=== PATIENT | male | born 1975 | race Caucasian/White ===

== ENCOUNTER 2016-12-16 14:22 | Emergency (ER) | payer MEDICARE ==
[~2016-12-16] VITALS: Ht 182.9 cm; Wt 91.3 kg
[2016-12-16 14:32] VITALS: BP 120/85; PULSE 67; RESP 16; TEMP 98.8; O2SAT 100
[2016-12-16] MEDS ORDERED: METH5INJ INJ (15:14)
[2016-12-16] MEDS ORDERED: FOLI400T PO (15:14)
[2016-12-16] MEDS ORDERED: PRED2.5T PO (15:14)
[2016-12-16] MEDS ORDERED: TETANUS/DIPHTHERIA TOXOID ADULT 0.5 ML VIAL IM ONE (15:15)
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
[2016-12-16] MEDS ORDERED: CEPH-460 PO (16:19)
[2016-12-16] MEDS ORDERED: TRAM50TA PO (16:20)
== END 2016-12-16 16:54 | disposition home or self-care (01) ==
LOC: PHEFT 14:22
DX: S91.312A Laceration without foreign body, left foot, initial encounter (principal); X99.0XXA Assault by sharp glass, initial encounter; Z23 Encounter for immunization; Z72.0 Tobacco use
CPT/HCPCS: 12001; 73630; 90471; 90714

== ENCOUNTER 2018-01-20 08:59 | Emergency (ER) | payer MEDICARE, OTHER ==
[~2018-01-20] VITALS: Ht 182.9 cm; Wt 96.0 kg
[~2018-01-20 08:59] MED LIST: CEPH-460 PO; FOLI400T PO; METH5INJ INJ; PRED2.5T PO; TRAM50TA PO
[2018-01-20 09:08] VITALS: BP 124/67; PULSE 84; RESP 16; TEMP 100.3; O2SAT 95
--- NOTE | 2018-01-20 09:58 | RADRPT ---
EXAM DATE/TIME: 01/20/2018 09:23 [facility] COMPARISON: No previous studies available for comparison. INDICATIONS : Right wrist pain, injured yesterday working on an engine. MEDICAL HISTORY : None. SURGICAL HISTORY : None. ENCOUNTER: Initial ACUITY: 2 days PAIN SCORE: 8/10 LOCATION: Right wrist FINDINGS: Three view examination of the right wrist demonstrates no soft tissue swelling, dislocation, or fract ure. The carpal bones are in normal alignment. The joint spaces are maintained. Bony mineralizatio n is normal. CONCLUSION: Negative trauma study. Barrington Garcia MD on January 20, 2018 at 9:56 Board Certified Radiologist. This report was verified electronically.
[2018-01-20] MEDS ORDERED: ENBR50IN4 SQ (10:34)
[2018-01-20 10:59] VITALS: BP 108/57; PULSE 85; RESP 18; TEMP 99.5; O2SAT 97
[2018-01-20] MEDS ORDERED: IBUPROFEN 600 MG TAB PO ONE (11:15)
[2018-01-20] MEDS ORDERED: BACT800T5 PO (11:16)
--- NOTE | 2018-01-20 11:18 | PD ---
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 Persistent pain leading to today's evaluation reported. No fever. Pain is worse with range of motion and pressure. PFSH Past Medical History Arthritis: Yes (psoriatic) Past Surgical History Joint Replacement: Yes (total left knee ) Social History Alcohol Use: Yes (rare) Tobacco Use: No Substance Use: No Allergies-Medications (Allergen,Severity, Reaction): Coded Allergies: No Known Allergies (Unverified Adverse Reaction, Unknown, 01/20/18) Reported Meds & Prescriptions Reported Meds & Active Scripts Active Bactrim DS (Sulfamethoxazole-Trimethoprim) 800-160 Mg Tab 1 Tab PO BID Reported Enbrel Sureclick PF Inj (Etanercept) 50 Mg/Ml Syr 50 Mg SQ Q7D Prednisone 2.5 Mg Tab 2.5 Mg PO BID Folic Acid 400 Mcg Tab 400 Mcg PO SUMOTUWETHSA Methotrexate Inj 50 Mg/2 Ml Inj 0.8 Ml INJ FR Review of Systems General / Constitutional: No: Fever Eyes: No: Diploplia HENT: No: Headaches Respiratory: No: Cough Musculoskeletal: Positive: Pain Skin: Positive Rash Physical Exam Narrative GENERAL: 42 yo M, WNWD Vital Signs Date Time Temp Pulse Resp B/P (MAP) Pulse Ox O2 Delivery O2 Flow Rate FiO2 01/20/18 10:59 99.5 85 18 108/57 (74) 97 Room Air 01/20/18 09:08 100.3 84 16 124/67 (86) 95 SKIN: Erythema, tenderness, warmth. There are 2 lesions on the dorsum of the hand both are very superficial linear lacerations each measuring about 1.5 cm x 1 mm somewhat irregular in configuration. HEAD: Normocephalic. EYES: No scleral icterus. No injection or drainage. NECK: Supple, trachea midline. No JVD or lymphadenopathy. CARDIOVASCULAR: Regular rate and rhythm without murmurs, gallops, or rubs. RESPIRATORY: Breath sounds equal bilaterally. No accessory muscle use. GASTROINTESTINAL: Abdomen soft, non-tender, nondistended. MUSCULOSKELETAL: No cyanosis, or edema. Generalized swelling from the distal radioulnar articulation to the proximal phalanges of the right hand. 2+ radial artery pulses bilaterally. Snuffbox tenderness present on the right side. BACK: Nontender without obvious deformity. No CVA tenderness. Data Data Last Documented VS Vital Signs Date Time Temp Pulse Resp B/P (MAP) Pulse Ox O2 Delivery O2 Flow Rate FiO2 01/20/18 10:59 99.5 85 18 108/57 (74) 97 Room Air Orders Orders Wrist, Complete ([id number]) (01/20/18 09:10) ^ Splint (01/20/18 11:14) Ed Discharge Order (01/20/18 11:14) Ibuprofen (Motrin) (01/20/18 11:15) Ondansetron Odt (Zofran Odt) (01/20/18 11:30) MDM Medical Decision Making Medical Screen Exam Complete: Yes Emergency Medical Condition: Yes Medical Record Reviewed: Yes Differential Diagnosis Scaphoid fracture, cellulitis, contusion, radioulnar joint trauma Narrative Course Thumb spica Follow-up with hand surgery 2 weeks rule out scaphoid injury. Patient verbalized understanding and agreement follow-up as described. Trace cellulitis about the dorsum of the hand Bactrim prescribed Return precautions discussed Diagnosis Primary Impression: Carpal joint sprain Qualified Codes: S63.511A - Sprain of carpal joint of right wrist, initial encounter Additional Impression: Cellulitis of hand, right Referrals: Beck Francois MD call for appointment Hand surgeon. Call for appointment for repeat hand xray in two weeks to evaluation for scaphoid bone fracture. Belén Lord MD call for appointment Dr Lord is also a hand surgeon. If Dr Francois can't fit your in please call Dr Lord. Call for appointment for repeat hand xray in two weeks to evaluation for scaphoid bone fracture. Med/Other Pt SpecificInfo: Prescription(s) given Scripts Sulfamethoxazole-Trimethoprim (Bactrim DS) 800-160 Mg Tab 1 TAB PO BID for Infection, #20 TAB 0 Refills Prov: Yakov Sainz MD 01/20/18 Disposition: 01 DISCHARGE HOME Condition: Stable Yakov Sainz MD Jan 20, 2018 11:18
[2018-01-20] MEDS ORDERED: ONDANSETRON ODT 4 MG TAB PO ONE (11:30)
== END 2018-01-20 11:55 | disposition home or self-care (01) ==
LOC: PHED 08:59 → PHEFT 11:55
DX: S63.511A Sprain of carpal joint of right wrist, initial encounter (principal); L03.113 Cellulitis of right upper limb; W22.8XXA Striking against or struck by other objects, initial encounter
CPT/HCPCS: 73110; 99283